=== PATIENT | male | born 1960 | race Caucasian/White ===

== ENCOUNTER 2017-09-17 16:55 | Emergency (ER) | payer BC ==
[~2017-09-17] VITALS: Ht 170.2 cm; Wt 70.0 kg
[~2017-09-17 16:55] MED LIST: HYDROCODONE-APA1 TAB PO; TOPROL XL25 MG PO
[2017-09-17 17:59] LABS: BASOPHILS 0.6 % (0-2); EOSINOPHILS 1.7 % (0-7); HEMATOCRIT 39.5 % (42.0-54.0); HEMOGLOBIN 13.4 g/dL (13.5-17.5); IMMATURE GRANULOCYTES 0.3 % (0-5); MCH 30.8 pg (26.0-34.0); MCHC 33.9 g/dL (31.0-37.0); MCV 90.8 fL (80.0-100.0); MEAN PLATELET VOLUME 10.9 fL (7.4-10.4); MONOCYTES 9.4 % (2-11); PLATELET COUNT 144 10x3/uL (130-400); RBC 4.35 10x6/uL (4.20-6.10); RDW 12.5 % (11.5-14.5); WBC 7.2 10x3/uL (4.8-10.8)
[2017-09-17 18:30] LABS: APPEARANCE CLEAR (CLEAR); BACTERIA FEW /hpf (NONE SEEN); BILIRUBIN NEGATIVE (NEGATIVE); COLOR YELLOW (YELLOW); GLUCOSE NEGATIVE (NEGATIVE); KETONE NEGATIVE (NEGATIVE); NITRITE NEGATIVE (NEGATIVE); PROTEIN NEGATIVE (NEGATIVE); RED CELLS - URINE OCC /hpf (0-5); UROBILINOGEN NORMAL (NORMAL); WHITE CELLS - URINE 0-5 /hpf (0-5)
[2017-09-17 18:48] LABS: ALBUMIN 3.7 g/dL (3.4-5.0); ALKALINE PHOSPHATASE 56 U/L (46-116); ALT (SGPT) 27 U/L (10-68); BILIRUBIN - TOTAL 0.32 mg/dL (0.2-1.3); CALC OSMOLALITY 278 mosm/kg (275-300); CALCIUM 8.9 mg/dL (8.5-10.1); CARBON DIOXIDE 27.2 mmol/L (21.0-32.0); CHLORIDE - SERUM 103 mmol/L (98-107); GLUCOSE 99 mg/dL (74-106); POTASSIUM - SERUM 4.1 mmol/L (3.5-5.1); PROTEIN - SERUM 6.9 g/dL (6.4-8.2); SODIUM 139 mmol/L (136-145); UREA NITROGEN 14 mg/dL (7-18); eGFR NON AFRICAN AMERICAN 82 mL/min (90-120)
[2017-09-17 18:51] LABS: AMYLASE - SERUM 68 U/L (25-115); LIPASE 130 U/L (73-393); TROPONIN-I < 0.017 ng/mL (0.000-0.060)
[2017-09-17] MEDS ORDERED: FLOMAX0.4 MG PO (19:57)
[2017-09-17] MEDS ORDERED: ZOFRAN8 MG PO (19:57)
[2017-09-17] MEDS ORDERED: NORCO 7.5/325 T1 TA1 PO (19:57)
[2017-09-17] MEDS ORDERED: TORADOL10 MG PO (19:59)
== END 2017-09-17 20:45 | disposition home or self-care (01) ==
LOC: D.ER 16:55
PROVIDERS: Family Medicine
DX: N20.0 Calculus of kidney (principal)

== ENCOUNTER → 2018-06-22 10:58 | Outpatient (CLI) | payer BC ==
[2017-09-17 17:04] VITALS: BMI 24.1
[~2018-06-22 10:58] MED LIST changes: +FLOMAX0.4 MG PO; +NORCO 7.5/325 T1 TA1 PO; +TORADOL10 MG PO; +ZOFRAN8 MG PO
== END | disposition home or self-care (01) ==
LOC: D.HCCARDIO 10:58
PROVIDERS: ATTEND Internal Medicine Cardiovascular Disease
DX: I34.0 Nonrheumatic mitral (valve) insufficiency (principal)

== ENCOUNTER → 2019-12-29 11:30 | Outpatient (CLI) | payer BC ==
[2017-09-17 17:04] VITALS: BMI 24.1
== END | disposition home or self-care (01) ==
LOC: D.HCCECHO 11:30
PROVIDERS: ATTEND Internal Medicine Cardiovascular Disease
DX: I34.0 Nonrheumatic mitral (valve) insufficiency (principal)